=== PATIENT | male | born 1970 | race Caucasian/White ===

== ENCOUNTER 2022-10-19 13:54 | Emergency (ER) | payer OTHER ==
[~2022-10-19] VITALS: Ht 167.6 cm; Wt 111.1 kg
[2022-10-19] MEDS ORDERED: KETOROLAC TROMETHAMINE 30 MG INJ ONE (14:10)
[2022-10-19] MEDS ORDERED: KETOROLAC TROMETHAMINE 30 MG INJ IM ONE (14:15)
--- NOTE | 2022-10-19 14:15 | NUR ---
Pt arrived with c/o L shoulder pain, 06/02, d/t fall/slipped in the shower room - per pt. Seen by [facility] for MSE.
--- NOTE | 2022-10-19 15:00 | NUR ---
Patient discharged to home in stable condition. Written and verbal after care instructions given. Patient verbalizes understanding of instructions. Stressed follow up or return to ER for worsening s/s.
[2022-10-19 15:46] VITALS: BP 130/78
== END 2022-10-19 15:00 | disposition home or self-care (01) ==
LOC: ER 13:58
DX: M25.512 Pain in left shoulder (principal); W18.2XXA Fall in (into) shower or empty bathtub, initial encounter; Y93.E1 Activity, personal bathing and showering; Y92.031 Bathroom in apartment as the place of occurrence of the external cause; S43.402A Unspecified sprain of left shoulder joint, initial encounter; Z87.828 Personal history of other (healed) physical injury and trauma; I25.10 Atherosclerotic heart disease of native coronary artery without angina pectoris; Z95.5 Presence of coronary angioplasty implant and graft; E11.9 Type 2 diabetes mellitus without complications; E78.00 Pure hypercholesterolemia, unspecified
CPT/HCPCS: 99283; 73030; 96372; J1885; A4663